=== PATIENT | female | born 1990 | race Hispanic/Latino ===

== ENCOUNTER 2022-03-31 10:58 | Emergency (ER) | payer MEDICAID, OTHER ==
[~2022-03-31] VITALS: Ht 162.6 cm; Wt 77.1 kg
[2022-03-31 11:03] VITALS: BP 100/78
[2022-03-31] MEDS ORDERED: D-ME118S47 PO (14:27)
[2022-03-31] MEDS ORDERED: FEXO180T94 PO (14:27)
== END 2022-03-31 15:08 | disposition home or self-care (01) ==
LOC: EDH 10:58
DX: B34.9 Viral infection, unspecified (principal); Z20.822 Contact with and (suspected) exposure to COVID-19; E11.9 Type 2 diabetes mellitus without complications; Z79.899 Other long term (current) drug therapy; Z98.890 Other specified postprocedural states
CPT/HCPCS: 99283; 87635; 87880; 87804 ×2; C9803